=== PATIENT | male | born 1940 | race African-American/Black ===

== ENCOUNTER 2021-09-21 18:25 | Inpatient (IN) | payer MEDICARE, MEDICAID ==
[~2021-09-21] VITALS: Ht 182.9 cm; Wt 108.4 kg
[~2021-09-21 18:25] MED LIST: ACET500C PO; ATOR40TA52 PO; CALCTAB25 PO; CLOP75TA70 PO; DENO60SO SC; DILT180C10 PO; FURO20TA3 PO; ISOS10TA2 PO; LISI40TA11 PO; METF-370 PO; METO-289 PO; OMEP20CA74 OR; PIO30T GT; SAXA1TAB PO
[2021-09-21] MEDS ORDERED: ENOXAPARIN SOD 100 MG/1 ML SYRINGE SC ONE (20:00)
[2021-09-21] MEDS ORDERED: MORPHINE SULFATE 4 MG/ML SYR/VIAL IV ONE (20:00)
[2021-09-21] MEDS ORDERED: ONDANSETRON HCL 4 MG/2 ML VIAL IV ONE (20:00)
[2021-09-21] MEDS ORDERED: ONDANSETRON HCL 4 MG/2 ML VIAL IV PRN (21:30)
[2021-09-21] MEDS ORDERED: ACETAMINOPHEN 325 MG TAB PO PRN (21:30)
[2021-09-21] MEDS ORDERED: DEXTROSE (50%) 50ML SYRG IV PRN (21:30)
[2021-09-21 22:25] LABS: Basophils # (auto) 0 10 ^3/uL (0-0.2); Basophils % (auto) 0.4 % (0.0-2.0); Eosinophils # (auto) 0.1 10 ^3/uL (0-0.8); Eosinophils % (auto) 0.7 % (0.0-7.0); Hematocrit 39.1 % (41.0-53.0); Hemoglobin 12.4 g/dL (13.5-17.5); Lymphocytes # (auto) 1.3 10 ^3/uL (0.4-5.4); Lymphocytes % (auto) 15.7 % (10.0-50.0); Mean Corpuscular Hemoglobin 26.2 pg (28.0-32.0); Mean Corpuscular Hgb Conc. 31.6 g/dL (32.0-36.0); Mean Corpuscular Volume 82.8 fL (80.0-100.0); Monocytes % (auto) 12.1 % (0.0-12.0); Neutrophils % (auto) 71.1 % (37.0-80.0); Nucleated Red Blood Cells % 0.1 %; Red Blood Cells 4.72 10^6/uL (4.5-5.90); Red Cell Distribution Width 15.1 % (11.8-14.3); White Blood Cell 8.5 10^3/uL (4.4-10.8)
[2021-09-21 22:40] LABS: INR 1.03 (0.9-1.15); Partial Thromboplastin Time 27.3 sec (23.6-33.0)
[2021-09-21 22:56] LABS: Albumin 2.9 g/dL (3.4-5.0); Calcium 9.4 mg/dL (8.5-10.1); Potassium 4.7 mmol/L (3.5-5.1)
[2021-09-21 22:58] LABS: BUN/Creatinine Ratio 11.1
[2021-09-21 23:00] LABS: Bilirubin, Total 0.4 mg/dL (0.2-1.0); Total Protein 7.7 g/dL (6.4-8.2)
[2021-09-21] MEDS: InsuLIN REG 1unit/0.01ml Soln (100units/ml) SC SCH (23:23)
[2021-09-21] MEDS: ACCU-CHEK COMFORT CURVE STRIP VI SCH (23:24)
[2021-09-21] MEDS: ATORVASTATIN 20 MG TAB PO SCH (23:24)
[2021-09-22 06:13] LABS: Basophils # (auto) 0 10 ^3/uL (0-0.2); Basophils % (auto) 0.4 % (0.0-2.0); Eosinophils # (auto) 0.1 10 ^3/uL (0-0.8); Nucleated Red Blood Cells % 0.1 %
[2021-09-22 06:17] LABS: Eosinophils % (auto) 0.8 % (0.0-7.0); Hematocrit 36.7 % (41.0-53.0); Hemoglobin 11.8 g/dL (13.5-17.5); Lymphocytes # (auto) 1.4 10 ^3/uL (0.4-5.4); Lymphocytes % (auto) 21.3 % (10.0-50.0); Mean Corpuscular Hemoglobin 26.4 pg (28.0-32.0); Mean Corpuscular Hgb Conc. 32.3 g/dL (32.0-36.0); Mean Corpuscular Volume 81.9 fL (80.0-100.0); Monocytes # (auto) 0.7 10 ^3/uL (0-1.3); Monocytes % (auto) 11.5 % (0.0-12.0); Neutrophils # (auto) 4.2 10 ^3/uL (1.6-8.6); Red Blood Cells 4.48 10^6/uL (4.5-5.90); White Blood Cell 6.4 10^3/uL (4.4-10.8)
[2021-09-22 06:25] LABS: Albumin 2.8 g/dL (3.4-5.0); BUN/Creatinine Ratio 10.1; Calcium 9.3 mg/dL (8.5-10.1); Potassium 4.5 mmol/L (3.5-5.1)
[2021-09-22 06:37] LABS: Bilirubin, Total 0.4 mg/dL (0.2-1.0); Total Protein 7.6 g/dL (6.4-8.2)
[2021-09-22] MEDS: InsuLIN REG 1unit/0.01ml Soln (100units/ml) SC SCH ×4 (07:00→22:00)
[2021-09-22] MEDS: ACCU-CHEK COMFORT CURVE STRIP VI SCH ×3 (07:37→17:00)
[2021-09-22] MEDS: dilTIAZem HCL 180MG ER CAP PO SCH (10:23)
[2021-09-22] MEDS: ISOSORBIDE DINITRATE 10 MG TAB PO SCH (10:23)
[2021-09-22] MEDS: FUROSEMIDE 20 MG TAB PO SCH (10:23)
[2021-09-22] MEDS: ENOXAPARIN SOD 100 MG/1 ML SYRINGE SC SCH (10:24)
[2021-09-22] MEDS: METOPROLOL SUCCINATE XL 50 MG TAB PO SCH (10:24)
[2021-09-22] MEDS: CLOPIDOGREL BISULFATE 75 MG TAB PO SCH (10:24)
[2021-09-22] MEDS ORDERED: NITROGLYCERIN 0.4 MG SL TAB SL PRN (13:45)
[2021-09-22] MEDS ORDERED: SODIUM CHLORIDE 0.9% 1,000 ML IV ONE (13:45)
[2021-09-22] MEDS ORDERED: MORPHINE SULFATE INJECTION 2 MG/ML SYRG IV PRN (13:45)
[2021-09-22] MEDS ORDERED: IOHEXOL 350 MG/ML 100ML IJ ONE (14:02)
[2021-09-22] MEDS: SODIUM CHLOR 0.9% PF (SALINE LOCK) 10ML VIAL/SYR IV SCH (14:09)
[2021-09-23 05:40] LABS: Basophils # (auto) 0 10 ^3/uL (0-0.2); Basophils % (auto) 0.7 % (0.0-2.0); Eosinophils # (auto) 0 10 ^3/uL (0-0.8); Hemoglobin 11.4 g/dL (13.5-17.5); White Blood Cell 6.8 10^3/uL (4.4-10.8)
[2021-09-23 05:42] LABS: BUN/Creatinine Ratio 10.7; Calcium 8.8 mg/dL (8.5-10.1); Eosinophils % (auto) 0.7 % (0.0-7.0); Lymphocytes # (auto) 1.1 10 ^3/uL (0.4-5.4); Lymphocytes % (auto) 15.5 % (10.0-50.0); Mean Corpuscular Hgb Conc. 31.6 g/dL (32.0-36.0); Mean Corpuscular Volume 82.4 fL (80.0-100.0); Monocytes # (auto) 0.7 10 ^3/uL (0-1.3); Monocytes % (auto) 10.9 % (0.0-12.0); Neutrophils # (auto) 4.9 10 ^3/uL (1.6-8.6); Neutrophils % (auto) 72.2 % (37.0-80.0); Nucleated Red Blood Cells % 0.2 %; Red Blood Cells 4.37 10^6/uL (4.5-5.90); Red Cell Distribution Width 15.3 % (11.8-14.3)
[2021-09-23] MEDS: InsuLIN REG 1unit/0.01ml Soln (100units/ml) SC SCH ×2 (07:00→17:00)
[2021-09-23 09:00] VITALS: BP 147/55
[2021-09-23] MEDS: dilTIAZem HCL 180MG ER CAP PO SCH (09:05)
[2021-09-23] MEDS: ENOXAPARIN SOD 100 MG/1 ML SYRINGE SC SCH ×2 (09:05→23:36)
[2021-09-23] MEDS: ISOSORBIDE DINITRATE 10 MG TAB PO SCH (09:06)
[2021-09-23] MEDS: FUROSEMIDE 20 MG TAB PO SCH (09:08)
[2021-09-23] MEDS: METOPROLOL SUCCINATE XL 50 MG TAB PO SCH (09:09)
[2021-09-23] MEDS: CLOPIDOGREL BISULFATE 75 MG TAB PO SCH (09:09)
[2021-09-23] MEDS: ACCU-CHEK COMFORT CURVE STRIP VI SCH ×3 (11:30→23:38)
[2021-09-23 12:24] VITALS: BP 119/59
[2021-09-23] MEDS: SODIUM CHLOR 0.9% PF (SALINE LOCK) 10ML VIAL/SYR IV SCH ×2 (13:07→23:37)
[2021-09-23 16:59] VITALS: BP 118/86
[2021-09-23] MEDS ORDERED: LIDOCAINE 2% JELLY 11ml (GLYDO) UR ONE (17:30)
[2021-09-23 22:00] VITALS: BP 127/67
[2021-09-23] MEDS: ATORVASTATIN 20 MG TAB PO SCH (23:37)
[2021-09-23] MEDS: HYDROcodone-ACET 5/325MG TAB PO PRN (23:38)
[2021-09-24] MEDS: ATORVASTATIN 20 MG TAB PO SCH ×2 (02:00→21:49)
[2021-09-24 05:50] VITALS: BP 135/59
[2021-09-24] MEDS: InsuLIN REG 1unit/0.01ml Soln (100units/ml) SC SCH ×5 (07:00→21:49)
[2021-09-24 07:29] LABS: Basophils # (auto) 0 10 ^3/uL (0-0.2); Eosinophils # (auto) 0 10 ^3/uL (0-0.8); Nucleated Red Blood Cells % 0.1 %
[2021-09-24 07:33] LABS: Basophils % (auto) 0.7 % (0.0-2.0); Eosinophils % (auto) 0.5 % (0.0-7.0); Hematocrit 36.1 % (41.0-53.0); Hemoglobin 11.6 g/dL (13.5-17.5); Lymphocytes # (auto) 0.9 10 ^3/uL (0.4-5.4); Lymphocytes % (auto) 17.2 % (10.0-50.0); Mean Corpuscular Hemoglobin 26.4 pg (28.0-32.0); Mean Corpuscular Hgb Conc. 32.1 g/dL (32.0-36.0); Mean Corpuscular Volume 82.1 fL (80.0-100.0); Monocytes # (auto) 0.7 10 ^3/uL (0-1.3); Monocytes % (auto) 12.4 % (0.0-12.0); Neutrophils # (auto) 3.6 10 ^3/uL (1.6-8.6); Neutrophils % (auto) 69.2 % (37.0-80.0); Red Cell Distribution Width 15.1 % (11.8-14.3); White Blood Cell 5.3 10^3/uL (4.4-10.8)
[2021-09-24 07:53] LABS: Potassium 4.9 mmol/L (3.5-5.1)
[2021-09-24] MEDS: ACCU-CHEK COMFORT CURVE STRIP VI SCH ×4 (08:06→21:54)
[2021-09-24] MEDS: SODIUM CHLOR 0.9% PF (SALINE LOCK) 10ML VIAL/SYR IV SCH ×3 (08:06→21:49)
[2021-09-24 08:08] LABS: BUN/Creatinine Ratio 10.9; Calcium 9.2 mg/dL (8.5-10.1)
[2021-09-24 09:39] VITALS: BP 127/67
[2021-09-24] MEDS: dilTIAZem HCL 180MG ER CAP PO SCH (10:47)
[2021-09-24] MEDS: CLOPIDOGREL BISULFATE 75 MG TAB PO SCH (10:48)
[2021-09-24] MEDS: ISOSORBIDE DINITRATE 10 MG TAB PO SCH (10:48)
[2021-09-24] MEDS: FUROSEMIDE 20 MG TAB PO SCH (10:48)
[2021-09-24] MEDS: ENOXAPARIN SOD 100 MG/1 ML SYRINGE SC SCH (10:49)
[2021-09-24] MEDS: METOPROLOL SUCCINATE XL 50 MG TAB PO SCH (10:49)
[2021-09-24 12:53] VITALS: BP 124/53
[2021-09-24] MEDS ORDERED: HEPARIN SODIUM (PORCINE) 5000 UNITS/ML 1ML VIAL IV ONE (13:30)
[2021-09-24] MEDS: HYDROcodone-ACET 5/325MG TAB PO PRN (14:55)
[2021-09-24 15:37] LABS: Basophils # (auto) 0.1 10 ^3/uL (0-0.2); Basophils % (auto) 1.9 % (0.0-2.0); Eosinophils # (auto) 0 10 ^3/uL (0-0.8); Eosinophils % (auto) 0.5 % (0.0-7.0); Hematocrit 39.5 % (41.0-53.0); Hemoglobin 12.6 g/dL (13.5-17.5); Lymphocytes # (auto) 1.1 10 ^3/uL (0.4-5.4); Lymphocytes % (auto) 18.1 % (10.0-50.0); Mean Corpuscular Hemoglobin 26.2 pg (28.0-32.0); Mean Corpuscular Hgb Conc. 31.8 g/dL (32.0-36.0); Mean Corpuscular Volume 82.3 fL (80.0-100.0); Monocytes # (auto) 0.6 10 ^3/uL (0-1.3); Monocytes % (auto) 9.9 % (0.0-12.0); Neutrophils # (auto) 4.3 10 ^3/uL (1.6-8.6); Neutrophils % (auto) 69.6 % (37.0-80.0); Nucleated Red Blood Cells % 0.3 %; Red Cell Distribution Width 15.2 % (11.8-14.3); White Blood Cell 6.2 10^3/uL (4.4-10.8)
[2021-09-24 16:19] LABS: INR 1.09 (0.9-1.15); Partial Thromboplastin Time 32.7 sec (23.6-33.0)
[2021-09-24] MEDS: HEPARIN DRIP/D5W 100UNITS/ML 250 ML IV SCH (16:36)
[2021-09-24 16:38] VITALS: BP 138/57
[2021-09-24 21:26] VITALS: BP 144/67
[2021-09-24 23:44] LABS: INR 1.1 (0.9-1.15); Partial Thromboplastin Time 65.4 sec (23.6-33.0)
[2021-09-25] VITALS (13 sets, daily range): BP systolic 120–153; BP diastolic 50–81
[2021-09-25 05:24] LABS: Basophils # (auto) 0.1 10 ^3/uL (0-0.2); Eosinophils # (auto) 0 10 ^3/uL (0-0.8); Eosinophils % (auto) 0.4 % (0.0-7.0); Hemoglobin 12.2 g/dL (13.5-17.5); Lymphocytes # (auto) 1.3 10 ^3/uL (0.4-5.4); Monocytes # (auto) 0.6 10 ^3/uL (0-1.3)
[2021-09-25 05:27] LABS: Basophils % (auto) 0.9 % (0.0-2.0); Hematocrit 37.6 % (41.0-53.0); Lymphocytes % (auto) 22.2 % (10.0-50.0); Mean Corpuscular Hemoglobin 26.6 pg (28.0-32.0); Mean Corpuscular Hgb Conc. 32.5 g/dL (32.0-36.0); Mean Corpuscular Volume 81.9 fL (80.0-100.0); Monocytes % (auto) 9.9 % (0.0-12.0); Neutrophils % (auto) 66.6 % (37.0-80.0); Red Cell Distribution Width 15.1 % (11.8-14.3)
[2021-09-25 05:40] LABS: INR 1.08 (0.9-1.15); Partial Thromboplastin Time 69.2 sec (23.6-33.0)
[2021-09-25 05:41] LABS: Calcium 8.9 mg/dL (8.5-10.1); Potassium 4.3 mmol/L (3.5-5.1)
[2021-09-25 05:43] LABS: BUN/Creatinine Ratio 10.1
[2021-09-25] MEDS: HEPARIN DRIP/D5W 100UNITS/ML 250 ML IV SCH (06:47)
[2021-09-25] MEDS: SODIUM CHLOR 0.9% PF (SALINE LOCK) 10ML VIAL/SYR IV SCH ×2 (06:47→14:00)
[2021-09-25] MEDS: InsuLIN REG 1unit/0.01ml Soln (100units/ml) SC SCH ×4 (06:48→22:00)
[2021-09-25] MEDS: ACCU-CHEK COMFORT CURVE STRIP VI SCH ×3 (06:48→17:00)
[2021-09-25] MEDS: FUROSEMIDE 20 MG TAB PO SCH (09:32)
[2021-09-25] MEDS: ISOSORBIDE DINITRATE 10 MG TAB PO SCH (09:32)
[2021-09-25] MEDS: METOPROLOL SUCCINATE XL 50 MG TAB PO SCH (09:32)
[2021-09-25] MEDS: dilTIAZem HCL 180MG ER CAP PO SCH (09:33)
[2021-09-25] MEDS ORDERED: MIDAZOLAM HCL 2MG/2ML 2ml VIAL (1mg/ml) ONE (12:11)
[2021-09-25] MEDS ORDERED: HYDROmorphone HCL 2 MG/ML VL ONE (12:11)
[2021-09-25] MEDS ORDERED: LIDOCAINE 2%HCL (LOCAL ANESTH.) INJ 20ML MDV ONE (12:11)
[2021-09-25] MEDS ORDERED: IODIXANOL 320MG/ML 100ML BTL IV ONE (12:12)
[2021-09-25] MEDS ORDERED: fentaNYL CITRATE 100 MCG/2 ML VL ONE (12:34)
[2021-09-25] MEDS ORDERED: ANGIOMAX 250 MG VIAL IV ONE (12:59)
[2021-09-25] MEDS ORDERED: SODIUM CHL 0.9% 0 ML ONE (12:59)
[2021-09-25] MEDS ORDERED: HEPARIN SODIUM (PORCINE) 5000 UNITS/ML 1ML VIAL ONE (13:31)
[2021-09-25] MEDS ORDERED: ENOXAPARIN SOD 80 MG/0.8ML SYRINGE SC ONE (18:30)
[2021-09-26] MEDS: SODIUM CHLOR 0.9% PF (SALINE LOCK) 10ML VIAL/SYR IV SCH ×4 (00:29→21:26)
[2021-09-26] MEDS: ATORVASTATIN 20 MG TAB PO SCH ×2 (00:30→21:27)
[2021-09-26] MEDS: ACCU-CHEK COMFORT CURVE STRIP VI SCH ×4 (00:30→17:00)
[2021-09-26] MEDS: HYDROcodone-ACET 5/325MG TAB PO PRN (00:32)
[2021-09-26 05:46] LABS: Basophils # (auto) 0 10 ^3/uL (0-0.2); Basophils % (auto) 0.4 % (0.0-2.0); Eosinophils # (auto) 0 10 ^3/uL (0-0.8); Hemoglobin 11.7 g/dL (13.5-17.5); White Blood Cell 5.8 10^3/uL (4.4-10.8)
[2021-09-26 05:47] LABS: Eosinophils % (auto) 0.4 % (0.0-7.0); Hematocrit 36.9 % (41.0-53.0); Lymphocytes # (auto) 1.1 10 ^3/uL (0.4-5.4); Lymphocytes % (auto) 18.2 % (10.0-50.0); Mean Corpuscular Hemoglobin 25.9 pg (28.0-32.0); Mean Corpuscular Hgb Conc. 31.6 g/dL (32.0-36.0); Mean Corpuscular Volume 81.9 fL (80.0-100.0); Monocytes # (auto) 0.8 10 ^3/uL (0-1.3); Neutrophils # (auto) 3.9 10 ^3/uL (1.6-8.6); Nucleated Red Blood Cells % 0.3 %; Red Blood Cells 4.51 10^6/uL (4.5-5.90)
[2021-09-26 05:56] LABS: BUN/Creatinine Ratio 12.4; Calcium 8.8 mg/dL (8.5-10.1)
[2021-09-26] MEDS: InsuLIN REG 1unit/0.01ml Soln (100units/ml) SC SCH ×4 (06:58→22:00)
[2021-09-26 09:00] VITALS: BP 133/68
[2021-09-26] MEDS: APIXABAN 5 MG TAB PO SCH ×2 (10:06→21:26)
[2021-09-26] MEDS: dilTIAZem HCL 180MG ER CAP PO SCH (10:07)
[2021-09-26] MEDS: FUROSEMIDE 20 MG TAB PO SCH (10:08)
[2021-09-26] MEDS: ISOSORBIDE DINITRATE 10 MG TAB PO SCH (10:08)
[2021-09-26] MEDS: METOPROLOL SUCCINATE XL 50 MG TAB PO SCH (10:09)
[2021-09-26] MEDS ORDERED: APIX5TAB PO ×3 (11:12)
[2021-09-26 13:00] VITALS: BP 120/58
[2021-09-26 15:23] VITALS: BP 120/58
[2021-09-26 17:00] VITALS: BP 139/82
[2021-09-27 05:17] LABS: Eosinophils # (auto) 0 10 ^3/uL (0-0.8); Monocytes # (auto) 0.7 10 ^3/uL (0-1.3); White Blood Cell 5.6 10^3/uL (4.4-10.8)
[2021-09-27 05:19] LABS: Basophils # (auto) 0 10 ^3/uL (0-0.2); Basophils % (auto) 0.8 % (0.0-2.0); Eosinophils % (auto) 0.9 % (0.0-7.0); Hematocrit 37.7 % (41.0-53.0); Hemoglobin 11.9 g/dL (13.5-17.5); Lymphocytes # (auto) 1.4 10 ^3/uL (0.4-5.4); Lymphocytes % (auto) 24.2 % (10.0-50.0); Mean Corpuscular Hemoglobin 25.8 pg (28.0-32.0); Mean Corpuscular Hgb Conc. 31.6 g/dL (32.0-36.0); Mean Corpuscular Volume 81.6 fL (80.0-100.0); Monocytes % (auto) 12.2 % (0.0-12.0); Neutrophils # (auto) 3.5 10 ^3/uL (1.6-8.6); Neutrophils % (auto) 61.9 % (37.0-80.0); Nucleated Red Blood Cells % 0.1 %; Red Blood Cells 4.62 10^6/uL (4.5-5.90); Red Cell Distribution Width 15.3 % (11.8-14.3)
[2021-09-27 05:34] LABS: Calcium 8.6 mg/dL (8.5-10.1); Potassium 4.1 mmol/L (3.5-5.1)
[2021-09-27 05:38] LABS: BUN/Creatinine Ratio 13.5
[2021-09-27] MEDS: SODIUM CHLOR 0.9% PF (SALINE LOCK) 10ML VIAL/SYR IV SCH ×2 (06:00→14:00)
[2021-09-27] MEDS: ACCU-CHEK COMFORT CURVE STRIP VI SCH ×3 (06:16→11:30)
[2021-09-27] MEDS: InsuLIN REG 1unit/0.01ml Soln (100units/ml) SC SCH ×2 (07:00→11:30)
[2021-09-27] MEDS: ISOSORBIDE DINITRATE 10 MG TAB PO SCH (10:54)
[2021-09-27] MEDS: dilTIAZem HCL 180MG ER CAP PO SCH (10:55)
[2021-09-27] MEDS: METOPROLOL SUCCINATE XL 50 MG TAB PO SCH (10:56)
[2021-09-27] MEDS: FUROSEMIDE 20 MG TAB PO SCH (10:56)
[2021-09-27] MEDS: APIXABAN 5 MG TAB PO SCH (10:56)
[2021-09-27 17:11] VITALS: BP 119/72
== END 2021-09-27 18:45 | disposition home health service (06) | DRG 270 ==
LOC: EDBD 18:25 → ER 18:29 → OVERFLOW 21:25 → WEST WING 09-22 20:23
PROVIDERS: ADMIT Nurse Practitioner; ATTEND Internal Medicine
PROC: 05HB33Z Insertion of Infusion Device into Right Basilic Vein, Percutaneous Approach (ICD-10-PCS; 2021-09-22)
PROC: B54MZZA Ultrasonography of Right Upper Extremity Veins, Guidance (ICD-10-PCS; 2021-09-22)
PROC: 06CN3ZZ Extirpation of Matter from Left Femoral Vein, Percutaneous Approach (ICD-10-PCS; principal; 2021-09-25)
PROC: 06CY3ZZ Extirpation of Matter from Lower Vein, Percutaneous Approach (ICD-10-PCS; 2021-09-25)
PROC: B51CYZZ Fluoroscopy of Left Lower Extremity Veins using Other Contrast (ICD-10-PCS; 2021-09-25)
DX: I82.412 Acute embolism and thrombosis of left femoral vein (principal); I26.99 Other pulmonary embolism without acute cor pulmonale; N17.0 Acute kidney failure with tubular necrosis; J96.01 Acute respiratory failure with hypoxia; I42.9 Cardiomyopathy, unspecified; E44.0 Moderate protein-calorie malnutrition; I82.432 Acute embolism and thrombosis of left popliteal vein; I82.422 Acute embolism and thrombosis of left iliac vein; E78.5 Hyperlipidemia, unspecified; E11.65 Type 2 diabetes mellitus with hyperglycemia; E66.01 Morbid (severe) obesity due to excess calories; Z68.33 Body mass index [BMI] 33.0-33.9, adult; Z20.822 Contact with and (suspected) exposure to COVID-19; I50.9 Heart failure, unspecified; I25.10 Atherosclerotic heart disease of native coronary artery without angina pectoris; I11.0 Hypertensive heart disease with heart failure; F17.210 Nicotine dependence, cigarettes, uncomplicated; Z53.20 Procedure and treatment not carried out because of patient's decision for unspecified reasons; Z85.46 Personal history of malignant neoplasm of prostate; Z86.73 Personal history of transient ischemic attack (TIA), and cerebral infarction without residual deficits; Z98.61 Coronary angioplasty status
CPT/HCPCS: 36415; 36600; 71275; 76942; 80048; 80053; 82805; 82962; 85025; 85379; 85610; 85730; 86850; 86900; 86901; 87426; 93005; 93306; 93971; 96361; 96372; 96374; 96375; 99152; 99153; C1769; G0378; J1815; J2250; J2405; Q9967

== ENCOUNTER 2021-12-15 12:28 | Inpatient (IN) | payer MEDICARE, MEDICAID ==
[~2021-12-15] VITALS: Ht 170.2 cm; Wt 94.7 kg
[~2021-12-15 12:28] MED LIST changes: +APIX5TAB PO; -CLOP75TA70 PO; -METF-370 PO; -PIO30T GT; +PIO30T PO
[2021-12-15] MEDS ORDERED: PIPERACILLIN-TAZOB 3.375GM 100 ML IV ONE (12:45)
[2021-12-15 14:28] LABS: Basophils # (auto) 0 10 ^3/uL (0-0.2); Basophils % (auto) 0.6 % (0.0-2.0); Eosinophils # (auto) 0.1 10 ^3/uL (0-0.8); Eosinophils % (auto) 0.9 % (0.0-7.0); Hematocrit 36.9 % (41.0-53.0); Hemoglobin 11.7 g/dL (13.5-17.5); Lymphocytes # (auto) 1.4 10 ^3/uL (0.4-5.4); Mean Corpuscular Hemoglobin 25.5 pg (28.0-32.0); Mean Corpuscular Hgb Conc. 31.7 g/dL (32.0-36.0); Mean Corpuscular Volume 80.5 fL (80.0-100.0); Monocytes # (auto) 0.8 10 ^3/uL (0-1.3); Monocytes % (auto) 11.5 % (0.0-12.0); Neutrophils # (auto) 4.5 10 ^3/uL (1.6-8.6); Nucleated Red Blood Cells % 0.1 %; Red Blood Cells 4.59 10^6/uL (4.5-5.90); Red Cell Distribution Width 17.4 % (11.8-14.3); White Blood Cell 6.9 10^3/uL (4.4-10.8)
[2021-12-15 14:41] LABS: Albumin 3.1 g/dL (3.4-5.0); BUN/Creatinine Ratio 9.8; Calcium 9.3 mg/dL (8.5-10.1); Potassium 4.2 mmol/L (3.5-5.1)
[2021-12-15 14:45] LABS: Bilirubin, Total 0.5 mg/dL (0.2-1.0); Total Protein 7.6 g/dL (6.4-8.2)
[2021-12-15 15:09] LABS: INR 1.03 (0.9-1.15); Partial Thromboplastin Time 27.7 sec (23.6-33.0)
[2021-12-15] MEDS ORDERED: ENOXAPARIN SOD 100 MG/1 ML SYRINGE SC ONE (17:15)
[2021-12-15] MEDS ORDERED: MORPHINE SULFATE INJECTION 2 MG/ML SYRG IV PRN ×2 (17:15→19:15)
[2021-12-15] MEDS ORDERED: NITROGLYCERIN 0.4 MG SL TAB SL PRN (17:15)
[2021-12-15] MEDS ORDERED: IOHEXOL 350 MG/ML 100ML IJ ONE (17:29)
[2021-12-15] MEDS ORDERED: LACTATED RINGER'S 1,000 ML IV SCH (20:00)
[2021-12-15] MEDS ORDERED: LACTULOSE 20Gm/30ML SOLN PO PRN (20:45)
[2021-12-15] MEDS ORDERED: DOCUSATE SOD 100 MG CAP PO PRN (20:45)
[2021-12-15] MEDS ORDERED: hydrALAZINE HCL 20 MG/ML VL IV PRN (20:45)
[2021-12-15] MEDS ORDERED: IPRATROPIUM BROM 0.5 MG/2.5ML INH SOL NEB ONE (20:45)
[2021-12-15] MEDS ORDERED: ACETAMINOPHEN 325 MG TAB PO PRN (20:45)
[2021-12-15] MEDS ORDERED: DEXTROSE (50%) 50ML SYRG IV PRN (20:45)
[2021-12-15] MEDS ORDERED: METOCLOPRAMIDE HCL 5MG/ml INJ 2ml VIAL IV PRN (20:45)
[2021-12-15] MEDS ORDERED: BUDESONIDE (INHALATION) 0.5 MG/2 ML NEB NEB ONE (20:45)
[2021-12-15] MEDS ORDERED: HYDROcodone-ACET 5/325MG TAB PO ONE (20:45)
[2021-12-15] MEDS ORDERED: FAMOTIDINE (10MG/ML) 2ML VL IV ONE (20:45)
[2021-12-15] MEDS ORDERED: METOPROLOL SUCCINATE XL 50 MG TAB PO ONE (20:45)
[2021-12-15] MEDS ORDERED: POTASSIUM CHL 20 Meq TABLET PO PRN (20:45)
[2021-12-15] MEDS ORDERED: LORazepam 0.5 MG TAB PO PRN (20:45)
[2021-12-15] MEDS: APIXABAN 5 MG TAB PO SCH (21:57)
[2021-12-15] MEDS: FUROSEMIDE 20 MG/2 ML VIAL IV SCH (21:58)
[2021-12-15] MEDS: CLINDAMYCIN 600MG IV 50 ML IV SCH (21:58)
[2021-12-15] MEDS ORDERED: IPRATROPIUM BROM 0.5 MG/2.5ML INH SOL NEB SCH (22:00)
[2021-12-15] MEDS: cefTRIAXone 1GM/50ML D5W 50 ML IV SCH (22:00)
[2021-12-15] MEDS ORDERED: BUDESONIDE (INHALATION) 0.5 MG/2 ML NEB NEB SCH (22:00)
[2021-12-15] MEDS: ATORVASTATIN 20 MG TAB PO SCH (22:01)
[2021-12-15] MEDS: ACCU-CHEK COMFORT CURVE STRIP VI SCH (22:19)
[2021-12-15 22:28] LABS: Phosphorus 2.6 mg/dL (2.5-4.90)
[2021-12-15] MEDS: InsuLIN REG 1unit/0.01ml Soln (100units/ml) SC SCH (23:17)
[2021-12-15] MEDS: HYDROcodone-ACET 5/325MG TAB PO PRN (23:19)
[2021-12-16] VITALS (9 sets, daily range): BP systolic 109–132; BP diastolic 55–68
[2021-12-16] MEDS ORDERED: LISI-275 PO (02:58)
[2021-12-16] MEDS ORDERED: TAMS0.4C36 PO (03:00)
[2021-12-16] MEDS ORDERED: DILT120T3 PO (03:18)
[2021-12-16] MEDS ORDERED: CALC-386 PO (03:18)
[2021-12-16] MEDS ORDERED: FERR-20 PO (03:18)
[2021-12-16] MEDS ORDERED: GABA300C10 PO (03:18)
[2021-12-16] MEDS ORDERED: NITR0.4S29 SL (03:18)
[2021-12-16] MEDS ORDERED: METH500T22 PO (03:18)
[2021-12-16] MEDS ORDERED: MAGN400T40 PO (03:18)
[2021-12-16] MEDS ORDERED: ISOS10TA45 PO (03:18)
[2021-12-16] MEDS ORDERED: ALOG1TAB2 PO (03:18)
[2021-12-16] MEDS ORDERED: ALBU108A5 IN (03:18)
[2021-12-16 05:35] LABS: Basophils # (auto) 0 10 ^3/uL (0-0.2); Basophils % (auto) 0.6 % (0.0-2.0); Eosinophils # (auto) 0.1 10 ^3/uL (0-0.8); Hematocrit 34.9 % (41.0-53.0); Hemoglobin 11.2 g/dL (13.5-17.5); Lymphocytes # (auto) 1.5 10 ^3/uL (0.4-5.4); Neutrophils # (auto) 3.9 10 ^3/uL (1.6-8.6); Nucleated Red Blood Cells % 0.2 %
[2021-12-16 05:37] LABS: Eosinophils % (auto) 2.3 % (0.0-7.0); Lymphocytes % (auto) 23.2 % (10.0-50.0); Mean Corpuscular Hemoglobin 26.2 pg (28.0-32.0); Mean Corpuscular Hgb Conc. 32.2 g/dL (32.0-36.0); Mean Corpuscular Volume 81.2 fL (80.0-100.0); Monocytes # (auto) 0.7 10 ^3/uL (0-1.3); Monocytes % (auto) 11.9 % (0.0-12.0); Red Cell Distribution Width 17.2 % (11.8-14.3); White Blood Cell 6.3 10^3/uL (4.4-10.8)
[2021-12-16 05:50] LABS: INR 1.09 (0.9-1.15); Partial Thromboplastin Time 31.4 sec (23.6-33.0)
[2021-12-16 05:56] LABS: Calcium 9.2 mg/dL (8.5-10.1); Potassium 4.8 mmol/L (3.5-5.1)
[2021-12-16] MEDS: InsuLIN REG 1unit/0.01ml Soln (100units/ml) SC SCH ×4 (06:06→20:52)
[2021-12-16] MEDS: ACCU-CHEK COMFORT CURVE STRIP VI SCH ×4 (06:07→20:53)
[2021-12-16 06:09] LABS: BUN/Creatinine Ratio 9.2; Bilirubin, Total 0.7 mg/dL (0.2-1.0); CRP High Sensitivity 1.08 mg/dL (< 0.3); Phosphorus 2.9 mg/dL (2.5-4.90); Total Protein 7.6 g/dL (6.4-8.2)
[2021-12-16 06:14] LABS: Thyroid Stimulating Hormone 2.8 uIU/mL (0.358-3.74)
[2021-12-16] MEDS: FUROSEMIDE 20 MG/2 ML VIAL IV SCH (06:22)
[2021-12-16] MEDS: CLINDAMYCIN 600MG IV 50 ML IV SCH ×3 (06:22→21:00)
[2021-12-16 07:24] LABS: Alcohol, Urine < 3.0 mg/dL (0-10); Amphetamine Screen, Urine NEGATIVE (NEGATIVE); Barbiturate Scree,Urine NEGATIVE (NEGATIVE); Benzodiazephine Screen, Urine NEGATIVE (NEGATIVE); Cannabinoid Screen, Urine NEGATIVE (NEGATIVE); Cocaine Screen, Urine NEGATIVE (NEGATIVE); Opiate Scree,Urine NEGATIVE (NEGATIVE); Phencyclidine Screen, Urine NEGATIVE (NEGATIVE); Protein, Urine 30.9 mg/dL (0.0-11.9)
[2021-12-16 07:30] LABS: Urine Bacteria FEW /hpf (None Seen); Urine Blood Negative /uL (Negative); Urine Specific Gravity 1.033 (1.001-1.035); Urine WBC 1 /hpf (0 - 3)
[2021-12-16] MEDS: CALCIUM W/VIT D (600MG/400IU) TAB PO SCH ×2 (08:29→17:13)
[2021-12-16] MEDS: APIXABAN 5 MG TAB PO SCH ×2 (09:41→21:00)
[2021-12-16] MEDS: BENAZEPRIL HCL 10 MG TAB PO SCH (09:42)
[2021-12-16] MEDS: ASPirin 81 mg TAB PO SCH (09:43)
[2021-12-16] MEDS ORDERED: FAMOTIDINE (10MG/ML) 2ML VL IV SCH (10:00)
[2021-12-16] MEDS ORDERED: FUROSEMIDE 20 MG/2 ML VIAL IV ONE (13:15)
[2021-12-16] MEDS: FUROSEMIDE 40 MG/4 ML VIAL IV SCH (17:13)
[2021-12-16] MEDS: ATORVASTATIN 20 MG TAB PO SCH (21:00)
[2021-12-16] MEDS: HYDROcodone-ACET 5/325MG TAB PO PRN (21:00)
[2021-12-16] MEDS: METOPROLOL SUCCINATE XL 50 MG TAB PO SCH (21:01)
[2021-12-16] MEDS: cefTRIAXone 1GM/50ML D5W 50 ML IV SCH (21:09)
[2021-12-16] MEDS ORDERED: FAMOTIDINE 20 MG TAB PO SCH (22:00)
[2021-12-16] MEDS: MORPHINE SULFATE INJECTION 2 MG/ML SYRG IV PRN (22:28)
[2021-12-17 04:53] VITALS: BP 129/53
[2021-12-17] MEDS: CLINDAMYCIN 600MG IV 50 ML IV SCH ×3 (05:19→23:05)
[2021-12-17] MEDS: MORPHINE SULFATE INJECTION 2 MG/ML SYRG IV PRN ×3 (05:21→20:45)
[2021-12-17] MEDS: InsuLIN REG 1unit/0.01ml Soln (100units/ml) SC SCH ×4 (06:39→21:47)
[2021-12-17] MEDS: ACCU-CHEK COMFORT CURVE STRIP VI SCH ×4 (06:39→21:47)
[2021-12-17] MEDS: FUROSEMIDE 40 MG/4 ML VIAL IV SCH ×2 (06:45→17:15)
[2021-12-17] MEDS: CALCIUM W/VIT D (600MG/400IU) TAB PO SCH ×2 (07:56→17:15)
[2021-12-17 08:00] VITALS: BP 120/57
[2021-12-17 09:00] VITALS: BP 120/57
[2021-12-17] MEDS: APIXABAN 5 MG TAB PO SCH ×2 (09:01→22:31)
[2021-12-17] MEDS: ASPirin 81 mg TAB PO SCH (09:02)
[2021-12-17] MEDS: BENAZEPRIL HCL 10 MG TAB PO SCH (09:02)
[2021-12-17 12:59] VITALS: BP 109/55
[2021-12-17 17:00] VITALS: BP 124/59
[2021-12-17 22:00] VITALS: BP 108/62
[2021-12-17] MEDS: METOPROLOL SUCCINATE XL 50 MG TAB PO SCH (22:31)
[2021-12-17] MEDS: ATORVASTATIN 20 MG TAB PO SCH (22:31)
[2021-12-17] MEDS: cefTRIAXone 1GM/50ML D5W 50 ML IV SCH (22:31)
[2021-12-18 05:00] VITALS: BP 95/51
[2021-12-18] MEDS: FUROSEMIDE 40 MG/4 ML VIAL IV SCH (05:09)
[2021-12-18] MEDS: CLINDAMYCIN 600MG IV 50 ML IV SCH (05:09)
[2021-12-18] MEDS: ACCU-CHEK COMFORT CURVE STRIP VI SCH ×2 (06:10→12:13)
[2021-12-18] MEDS: InsuLIN REG 1unit/0.01ml Soln (100units/ml) SC SCH ×2 (06:10→11:30)
[2021-12-18 08:00] VITALS: BP_SYST 0; BP_SYST 127; BP_SYST 95; BP_DIAS 0; BP_DIAS 51; BP_DIAS 52
[2021-12-18] MEDS: CALCIUM W/VIT D (600MG/400IU) TAB PO SCH (08:38)
[2021-12-18 08:53] VITALS: BP 127/52
[2021-12-18] MEDS: MORPHINE SULFATE INJECTION 2 MG/ML SYRG IV PRN (09:21)
[2021-12-18] MEDS: APIXABAN 5 MG TAB PO SCH (09:24)
[2021-12-18] MEDS: ASPirin 81 mg TAB PO SCH (09:24)
[2021-12-18] MEDS: BENAZEPRIL HCL 10 MG TAB PO SCH (09:25)
[2021-12-18] MEDS ORDERED: CEPH-322 PO (10:01)
[2021-12-18] MEDS ORDERED: HYDR-4902 PO (10:01)
[2021-12-18] MEDS ORDERED: CLIN300C8 PO (10:01)
[2021-12-18] MEDS ORDERED: CYCLOBENZAPRINE HCL 10 MG TAB PO SCH ×2 (10:19→14:00)
[2021-12-18] MEDS ORDERED: CYCLOBENZAPRINE HCL 10 MG TAB PO ONE (10:30)
[2021-12-18 10:53] VITALS: BP 127/52
[2021-12-19] MEDS ORDERED: CLIN300C8 PO (11:23)
[2021-12-19] MEDS ORDERED: HYDR-4902 PO (11:23)
[2021-12-19] MEDS ORDERED: CEPH500C PO (11:23)
== END 2021-12-18 13:00 | disposition home health service (06) | DRG 602 ==
LOC: ER 12:28 → EDBD 12:28 → TELE 17:07 → TELE-EAST 23:46
PROVIDERS: ADMIT Hospitalist; ATTEND Family Medicine
DX: L03.116 Cellulitis of left lower limb (principal); I50.43 Acute on chronic combined systolic (congestive) and diastolic (congestive) heart failure; I42.9 Cardiomyopathy, unspecified; I13.0 Hypertensive heart and chronic kidney disease with heart failure and stage 1 through stage 4 chronic kidney disease, or unspecified chronic kidney disease; I82.432 Acute embolism and thrombosis of left popliteal vein; E11.22 Type 2 diabetes mellitus with diabetic chronic kidney disease; E11.40 Type 2 diabetes mellitus with diabetic neuropathy, unspecified; E11.51 Type 2 diabetes mellitus with diabetic peripheral angiopathy without gangrene; E88.09 Other disorders of plasma-protein metabolism, not elsewhere classified; Z66 Do not resuscitate; I25.10 Atherosclerotic heart disease of native coronary artery without angina pectoris; J44.9 Chronic obstructive pulmonary disease, unspecified; N18.31 Chronic kidney disease, stage 3a; E78.00 Pure hypercholesterolemia, unspecified; D64.9 Anemia, unspecified; Z20.822 Contact with and (suspected) exposure to COVID-19; E66.01 Morbid (severe) obesity due to excess calories; F17.210 Nicotine dependence, cigarettes, uncomplicated; Z79.01 Long term (current) use of anticoagulants; Z79.899 Other long term (current) drug therapy; Z85.46 Personal history of malignant neoplasm of prostate; Z86.711 Personal history of pulmonary embolism; Z86.718 Personal history of other venous thrombosis and embolism; Z86.73 Personal history of transient ischemic attack (TIA), and cerebral infarction without residual deficits; Z95.5 Presence of coronary angioplasty implant and graft; Z68.32 Body mass index [BMI] 32.0-32.9, adult; Z71.6 Tobacco abuse counseling
CPT/HCPCS: 36415; 71045; 71275; 80053; 80061; 80307; 81001; 82550; 82728; 82962; 83036; 83605; 83615; 83690; 83735; 83880; 83970; 84100; 84156; 84443; 84484; 84550; 85025; 85610; 85652; 85730; 86141; 87040; 87086; 93005; 93970; 96365; G0378; J0696; J1815; J2543; J3490

== ENCOUNTER 2022-01-03 12:52 | Inpatient (IN) | payer MEDICARE, MEDICAID ==
[~2022-01-03] VITALS: Ht 170.2 cm; Wt 71.2 kg
[~2022-01-03 12:52] MED LIST changes: +ALBU108A5 IN; +ALOG1TAB2 PO; +CALC-386 PO; -CALCTAB25 PO; +CEPH500C PO; +CLIN300C8 PO; -DENO60SO SC; +DILT120T3 PO; -DILT180C10 PO; +FERR-20 PO; +GABA300C10 PO; +HYDR-4902 PO; -ISOS10TA2 PO; +ISOS10TA45 PO; +LISI-275 PO; -LISI40TA11 PO; +MAGN400T40 PO; +METH500T22 PO; +NITR0.4S29 SL; -SAXA1TAB PO; +TAMS0.4C36 PO
[2022-01-03 13:55] LABS: Basophils # (auto) 0.1 10 ^3/uL (0-0.2); Eosinophils # (auto) 0 10 ^3/uL (0-0.8); Hemoglobin 11.4 g/dL (13.5-17.5); Monocytes # (auto) 0.6 10 ^3/uL (0-1.3); Monocytes % (auto) 9.7 % (0.0-12.0); Neutrophils # (auto) 4.3 10 ^3/uL (1.6-8.6)
[2022-01-03 13:56] LABS: Eosinophils % (auto) 0.1 % (0.0-7.0); Hematocrit 34.7 % (41.0-53.0); Lymphocytes # (auto) 0.9 10 ^3/uL (0.4-5.4); Lymphocytes % (auto) 16.1 % (10.0-50.0); Mean Corpuscular Hemoglobin 25.8 pg (28.0-32.0); Mean Corpuscular Hgb Conc. 32.8 g/dL (32.0-36.0); Mean Corpuscular Volume 78.8 fL (80.0-100.0); Neutrophils % (auto) 73.1 % (37.0-80.0); Nucleated Red Blood Cells % 0.1 %; Red Cell Distribution Width 17.1 % (11.8-14.3); White Blood Cell 5.8 10^3/uL (4.4-10.8)
[2022-01-03 14:11] LABS: INR 1.12 (0.9-1.15); Partial Thromboplastin Time 29.1 sec (23.6-33.0)
[2022-01-03 14:12] LABS: Albumin 2.9 g/dL (3.4-5.0); Calcium 9.5 mg/dL (8.5-10.1); Potassium 3.9 mmol/L (3.5-5.1)
[2022-01-03 14:13] LABS: BUN/Creatinine Ratio 7.6
[2022-01-03 14:15] LABS: Bilirubin, Total 0.5 mg/dL (0.2-1.0); Total Protein 7.8 g/dL (6.4-8.2)
[2022-01-03] MEDS ORDERED: ONDANSETRON HCL 4 MG/2 ML VIAL IV ONE (14:45)
[2022-01-03] MEDS ORDERED: MORPHINE SULFATE 4 MG/ML SYR/VIAL IV ONE (14:45)
[2022-01-03] MEDS ORDERED: FUROSEMIDE 40 MG/4 ML VIAL IV ONE (15:00)
[2022-01-03] MEDS ORDERED: IOHEXOL 350 MG/ML 100ML IJ ONE (15:28)
[2022-01-03] MEDS ORDERED: cefTRIAXone 1GM/50ML D5W 50 ML IV ONE (18:15)
[2022-01-03] MEDS ORDERED: DEXTROSE (50%) 50ML SYRG IV PRN (18:15)
[2022-01-03] MEDS ORDERED: hydrALAZINE HCL 20 MG/ML VL IV PRN (18:30)
[2022-01-03] MEDS ORDERED: NICOTINE 14 MG/24HR TOPICAL PATCH TD ONE (18:30)
[2022-01-03 20:01] LABS: Cholesterol 157 mg/dL (< 200)
[2022-01-03 20:05] LABS: HDL Cholesterol 39 mg/dL (40-59); LDL Cholesterol 94 mg/dL (< 100); Triglycerides 111 mg/dL (< 150)
[2022-01-03] MEDS: ATORVASTATIN 20 MG TAB PO SCH (22:00)
[2022-01-03] MEDS: GABAPENTIN 300 MG CAP PO SCH (22:00)
[2022-01-03] MEDS: CLINDAMYCIN 300MG IV 50 ML IV SCH (22:00)
[2022-01-03] MEDS: APIXABAN 5 MG TAB PO SCH (22:00)
[2022-01-03] MEDS ORDERED: APIXABAN 5 MG TAB PO SCH (22:00)
[2022-01-03] MEDS: ACCU-CHEK COMFORT CURVE STRIP VI SCH (22:00)
[2022-01-03] MEDS: InsuLIN REG 1unit/0.01ml Soln (100units/ml) SC SCH (23:30)
[2022-01-04] VITALS (7 sets, daily range): BP systolic 103–143; BP diastolic 59–73
[2022-01-04] MEDS: MORPHINE SULFATE INJECTION 2 MG/ML SYRG IV PRN ×6 (00:44→22:51)
[2022-01-04] MEDS ORDERED: METF-370 PO (01:16)
[2022-01-04] MEDS: InsuLIN REG 1unit/0.01ml Soln (100units/ml) SC SCH ×4 (05:45→21:50)
[2022-01-04] MEDS: ACCU-CHEK COMFORT CURVE STRIP VI SCH ×4 (05:46→21:50)
[2022-01-04] MEDS: CLINDAMYCIN 300MG IV 50 ML IV SCH ×3 (06:20→21:50)
[2022-01-04] MEDS: FUROSEMIDE 20 MG/2 ML VIAL IV SCH ×2 (06:21→18:38)
[2022-01-04] MEDS: GABAPENTIN 300 MG CAP PO SCH ×3 (06:21→21:50)
[2022-01-04 07:34] LABS: BUN/Creatinine Ratio 9.3; Bilirubin, Total 0.5 mg/dL (0.2-1.0); Calcium 9.8 mg/dL (8.5-10.1); Total Protein 8.6 g/dL (6.4-8.2)
[2022-01-04 07:54] LABS: Eosinophils # (auto) 0 10 ^3/uL (0-0.8); Hematocrit 36.8 % (41.0-53.0); Mean Corpuscular Hgb Conc. 32.7 g/dL (32.0-36.0); Monocytes # (auto) 0.7 10 ^3/uL (0-1.3); Neutrophils # (auto) 4.1 10 ^3/uL (1.6-8.6)
[2022-01-04 07:57] LABS: Basophils # (auto) 0.1 10 ^3/uL (0-0.2); Basophils % (auto) 0.8 % (0.0-2.0); Eosinophils % (auto) 0.4 % (0.0-7.0); Lymphocytes # (auto) 1.6 10 ^3/uL (0.4-5.4); Lymphocytes % (auto) 24.2 % (10.0-50.0); Mean Corpuscular Hemoglobin 26.2 pg (28.0-32.0); Mean Corpuscular Volume 80.1 fL (80.0-100.0); Monocytes % (auto) 10.9 % (0.0-12.0); Neutrophils % (auto) 63.7 % (37.0-80.0); Nucleated Red Blood Cells % 0.1 %; Red Blood Cells 4.59 10^6/uL (4.5-5.90); Red Cell Distribution Width 17.6 % (11.8-14.3); White Blood Cell 6.4 10^3/uL (4.4-10.8)
[2022-01-04] MEDS: NICOTINE 14 MG/24HR TOPICAL PATCH TD SCH ×2 (09:15→09:23)
[2022-01-04] MEDS: FERROUS SULFATE 325mg EC TAB PO SCH (09:15)
[2022-01-04] MEDS: cefTRIAXone 1GM/50ML D5W 50 ML IV SCH (09:15)
[2022-01-04] MEDS: PANTOPRAZOLE 40 MG/10 ML VIAL INJ IV SCH (09:15)
[2022-01-04] MEDS: APIXABAN 5 MG TAB PO SCH (09:16)
[2022-01-04] MEDS: ATORVASTATIN 20 MG TAB PO SCH (21:50)
[2022-01-04] MEDS: ENOXAPARIN SOD 100 MG/1 ML SYRINGE SC SCH (21:50)
[2022-01-05 05:00] VITALS: BP 138/62
[2022-01-05] MEDS: CLINDAMYCIN 300MG IV 50 ML IV SCH ×3 (05:47→22:25)
[2022-01-05] MEDS: FUROSEMIDE 20 MG/2 ML VIAL IV SCH ×2 (05:48→17:10)
[2022-01-05] MEDS: GABAPENTIN 300 MG CAP PO SCH ×3 (05:48→22:26)
[2022-01-05 06:35] LABS: INR 1.13 (0.9-1.15)
[2022-01-05 06:39] LABS: Alanine Aminotransferase 19 U/L (16-61); Albumin 2.9 g/dL (3.4-5.0); Anion Gap 10 (5-15); Aspartate Aminotransferase 19 U/L (15-37); BUN/Creatinine Ratio 11.3; Blood Urea Nitrogen 13 mg/dL (7-18); Calcium 9.3 mg/dL (8.5-10.1); Carbon Dioxide 26 mmol/L (21-32); Chloride 102 mmol/L (98-107); GFR African American 78 mL/min; GFR Non-African American 65 mL/min; Glucose 120 mg/dL (74-106); Potassium 4.3 mmol/L (3.5-5.1); Sodium 138 mmol/L (136-145)
[2022-01-05] MEDS: InsuLIN REG 1unit/0.01ml Soln (100units/ml) SC SCH ×4 (06:39→22:00)
[2022-01-05] MEDS: ACCU-CHEK COMFORT CURVE STRIP VI SCH ×4 (06:39→22:26)
[2022-01-05] MEDS: MORPHINE SULFATE INJECTION 2 MG/ML SYRG IV PRN ×3 (06:40→22:27)
[2022-01-05 06:41] LABS: Alkaline Phosphatase 75 U/L (45-117); Bilirubin, Total 0.6 mg/dL (0.2-1.0)
[2022-01-05 07:55] LABS: Basophils # (auto) 0 10 ^3/uL (0-0.2); Basophils % (auto) 0.9 % (0.0-2.0); Eosinophils # (auto) 0.1 10 ^3/uL (0-0.8); Eosinophils % (auto) 1.1 % (0.0-7.0); Hematocrit 37.7 % (41.0-53.0); Hemoglobin 12.2 g/dL (13.5-17.5); Lymphocytes # (auto) 1.5 10 ^3/uL (0.4-5.4); Lymphocytes % (auto) 27.2 % (10.0-50.0); Mean Corpuscular Hemoglobin 25.9 pg (28.0-32.0); Mean Corpuscular Hgb Conc. 32.3 g/dL (32.0-36.0); Mean Corpuscular Volume 80.1 fL (80.0-100.0); Monocytes # (auto) 0.7 10 ^3/uL (0-1.3); Monocytes % (auto) 12.8 % (0.0-12.0); Neutrophils # (auto) 3.1 10 ^3/uL (1.6-8.6); Nucleated Red Blood Cells % 0.3 %; Red Blood Cells 4.71 10^6/uL (4.5-5.90); Red Cell Distribution Width 17.2 % (11.8-14.3); White Blood Cell 5.4 10^3/uL (4.4-10.8)
[2022-01-05 09:00] VITALS: BP 113/73
[2022-01-05] MEDS: cefTRIAXone 1GM/50ML D5W 50 ML IV SCH (09:29)
[2022-01-05] MEDS: PANTOPRAZOLE 40 MG/10 ML VIAL INJ IV SCH (09:30)
[2022-01-05] MEDS: FERROUS SULFATE 325mg EC TAB PO SCH (09:30)
[2022-01-05] MEDS: ENOXAPARIN SOD 100 MG/1 ML SYRINGE SC SCH ×2 (09:30→22:26)
[2022-01-05] MEDS: NICOTINE 14 MG/24HR TOPICAL PATCH TD SCH (09:31)
[2022-01-05] MEDS: HYDROcodone-ACET 5/325MG TAB PO PRN ×2 (09:41→17:18)
[2022-01-05 12:15] VITALS: BP 119/69
[2022-01-05] MEDS ORDERED: CLOPIDOGREL BISULFATE 75 MG TAB PO ONE (12:45)
[2022-01-05] MEDS ORDERED: LISINOPRIL 5 MG TAB PO ONE (12:45)
[2022-01-05] MEDS ORDERED: CARVEDILOL 3.125 MG TAB PO ONE (12:45)
[2022-01-05 17:00] VITALS: BP 114/61
[2022-01-05 22:00] VITALS: BP 109/59
[2022-01-05] MEDS: CARVEDILOL 3.125 MG TAB PO SCH (22:25)
[2022-01-05] MEDS: ATORVASTATIN 20 MG TAB PO SCH (22:26)
[2022-01-06 05:01] VITALS: BP 120/63
[2022-01-06] MEDS: MORPHINE SULFATE INJECTION 2 MG/ML SYRG IV PRN ×2 (05:14→21:38)
[2022-01-06] MEDS: FUROSEMIDE 20 MG/2 ML VIAL IV SCH ×2 (05:47→17:16)
[2022-01-06] MEDS: CLINDAMYCIN 300MG IV 50 ML IV SCH ×3 (05:47→21:21)
[2022-01-06] MEDS: GABAPENTIN 300 MG CAP PO SCH ×3 (05:47→21:21)
[2022-01-06] MEDS: InsuLIN REG 1unit/0.01ml Soln (100units/ml) SC SCH ×4 (06:30→21:40)
[2022-01-06] MEDS: ACCU-CHEK COMFORT CURVE STRIP VI SCH ×4 (06:30→21:41)
[2022-01-06 08:22] VITALS: BP 92/55
[2022-01-06] MEDS: CLOPIDOGREL BISULFATE 75 MG TAB PO SCH (09:06)
[2022-01-06] MEDS: FERROUS SULFATE 325mg EC TAB PO SCH (09:06)
[2022-01-06] MEDS: cefTRIAXone 1GM/50ML D5W 50 ML IV SCH (09:06)
[2022-01-06] MEDS: CARVEDILOL 3.125 MG TAB PO SCH ×2 (09:07→21:29)
[2022-01-06] MEDS: LISINOPRIL 5 MG TAB PO SCH (09:07)
[2022-01-06] MEDS: ENOXAPARIN SOD 100 MG/1 ML SYRINGE SC SCH ×2 (09:08→21:41)
[2022-01-06] MEDS: NICOTINE 14 MG/24HR TOPICAL PATCH TD SCH (09:08)
[2022-01-06] MEDS: HYDROcodone-ACET 5/325MG TAB PO PRN ×2 (10:52→17:49)
[2022-01-06 13:18] VITALS: BP 108/66
[2022-01-06 16:45] VITALS: BP 108/74
[2022-01-06] MEDS: ATORVASTATIN 20 MG TAB PO SCH (21:21)
[2022-01-06 22:22] VITALS: BP 104/83
[2022-01-07 05:14] VITALS: BP 140/68
[2022-01-07] MEDS: CLINDAMYCIN 300MG IV 50 ML IV SCH ×3 (05:15→21:32)
[2022-01-07] MEDS: GABAPENTIN 300 MG CAP PO SCH ×3 (05:15→21:33)
[2022-01-07] MEDS: FUROSEMIDE 20 MG/2 ML VIAL IV SCH ×2 (05:16→17:41)
[2022-01-07] MEDS: InsuLIN REG 1unit/0.01ml Soln (100units/ml) SC SCH ×4 (06:26→21:34)
[2022-01-07] MEDS: ACCU-CHEK COMFORT CURVE STRIP VI SCH ×4 (06:26→21:34)
[2022-01-07 06:58] LABS: Basophils # (auto) 0 10 ^3/uL (0-0.2); Eosinophils # (auto) 0.1 10 ^3/uL (0-0.8); Mean Corpuscular Hemoglobin 26.7 pg (28.0-32.0); Neutrophils # (auto) 3.5 10 ^3/uL (1.6-8.6); Red Blood Cells 4.51 10^6/uL (4.5-5.90); White Blood Cell 5.3 10^3/uL (4.4-10.8)
[2022-01-07 07:00] LABS: Basophils % (auto) 0.5 % (0.0-2.0); Hematocrit 36.2 % (41.0-53.0); Lymphocytes # (auto) 1.1 10 ^3/uL (0.4-5.4); Lymphocytes % (auto) 21.5 % (10.0-50.0); Mean Corpuscular Hgb Conc. 33.2 g/dL (32.0-36.0); Mean Corpuscular Volume 80.3 fL (80.0-100.0); Monocytes # (auto) 0.6 10 ^3/uL (0-1.3); Monocytes % (auto) 10.8 % (0.0-12.0); Neutrophils % (auto) 66.2 % (37.0-80.0); Nucleated Red Blood Cells % 0.1 %; Red Cell Distribution Width 16.7 % (11.8-14.3)
[2022-01-07 07:11] LABS: BUN/Creatinine Ratio 12.4; Calcium 9.8 mg/dL (8.5-10.1); Potassium 4.7 mmol/L (3.5-5.1)
[2022-01-07 07:12] LABS: INR 1.11 (0.9-1.15); Partial Thromboplastin Time 32.1 sec (23.6-33.0)
[2022-01-07] MEDS: cefTRIAXone 1GM/50ML D5W 50 ML IV SCH (08:32)
[2022-01-07] MEDS: FERROUS SULFATE 325mg EC TAB PO SCH (09:30)
[2022-01-07] MEDS: CLOPIDOGREL BISULFATE 75 MG TAB PO SCH (09:31)
[2022-01-07] MEDS: CARVEDILOL 3.125 MG TAB PO SCH ×2 (09:31→21:33)
[2022-01-07] MEDS: LISINOPRIL 5 MG TAB PO SCH (09:31)
[2022-01-07] MEDS: ENOXAPARIN SOD 100 MG/1 ML SYRINGE SC SCH ×3 (09:32→21:34)
[2022-01-07] MEDS: NICOTINE 14 MG/24HR TOPICAL PATCH TD SCH (09:33)
[2022-01-07 09:37] VITALS: BP 107/75
[2022-01-07] MEDS: MORPHINE SULFATE INJECTION 2 MG/ML SYRG IV PRN (10:53)
[2022-01-07] MEDS ORDERED: IODIXANOL 320MG/ML 100ML BTL IV ONE (12:02)
[2022-01-07] MEDS ORDERED: LIDOCAINE 2%HCL (LOCAL ANESTH.) INJ 10ml MDV ONE (12:02)
[2022-01-07] MEDS ORDERED: HYDROmorphone HCL 2 MG/ML VL/or syr ONE (12:09)
[2022-01-07] MEDS ORDERED: diphenhdrAMINE HCL 50 MG/1 ML VL ONE (12:09)
[2022-01-07] MEDS ORDERED: ANGIOMAX 250 MG VIAL IV ONE (12:09)
[2022-01-07] MEDS ORDERED: MIDAZOLAM HCL 2MG/2ML 2ml VIAL (1mg/ml) ONE (12:09)
[2022-01-07] MEDS ORDERED: SODIUM CHL 0.9% 50 ML ONE (12:10)
[2022-01-07 16:32] VITALS: BP 132/60
[2022-01-07] MEDS: ATORVASTATIN 20 MG TAB PO SCH (21:33)
[2022-01-07] MEDS: HYDROcodone-ACET 5/325MG TAB PO PRN (21:37)
[2022-01-07 22:07] VITALS: BP 102/58
[2022-01-08] MEDS: MORPHINE SULFATE INJECTION 2 MG/ML SYRG IV PRN ×3 (01:17→18:31)
[2022-01-08 04:49] VITALS: BP 129/69
[2022-01-08] MEDS: CLINDAMYCIN 300MG IV 50 ML IV SCH ×3 (06:41→21:33)
[2022-01-08] MEDS: GABAPENTIN 300 MG CAP PO SCH ×3 (06:41→21:34)
[2022-01-08] MEDS: ACCU-CHEK COMFORT CURVE STRIP VI SCH ×4 (06:42→21:35)
[2022-01-08] MEDS: InsuLIN REG 1unit/0.01ml Soln (100units/ml) SC SCH ×5 (06:42→22:05)
[2022-01-08] MEDS: FUROSEMIDE 20 MG/2 ML VIAL IV SCH ×2 (06:42→17:17)
[2022-01-08] MEDS: cefTRIAXone 1GM/50ML D5W 50 ML IV SCH (09:08)
[2022-01-08] MEDS: FERROUS SULFATE 325mg EC TAB PO SCH (09:08)
[2022-01-08 09:09] VITALS: BP 103/62
[2022-01-08] MEDS: CLOPIDOGREL BISULFATE 75 MG TAB PO SCH (09:09)
[2022-01-08] MEDS: ENOXAPARIN SOD 100 MG/1 ML SYRINGE SC SCH ×2 (09:09→21:35)
[2022-01-08] MEDS: CARVEDILOL 3.125 MG TAB PO SCH ×2 (09:09→21:34)
[2022-01-08] MEDS: NICOTINE 14 MG/24HR TOPICAL PATCH TD SCH (09:10)
[2022-01-08] MEDS: LISINOPRIL 5 MG TAB PO SCH (09:10)
[2022-01-08] MEDS: HYDROcodone-ACET 5/325MG TAB PO PRN ×2 (09:10→15:30)
[2022-01-08 12:49] VITALS: BP 136/56
[2022-01-08] MEDS ORDERED: POLYETHYLENE GLYCOL 17 GM PWDR PO ONE (15:15)
[2022-01-08 16:56] VITALS: BP 122/65
[2022-01-08] MEDS: ATORVASTATIN 20 MG TAB PO SCH (21:34)
[2022-01-08 22:00] VITALS: BP 126/70
[2022-01-09] VITALS (11 sets, daily range): BP systolic 127–147; BP diastolic 61–84
[2022-01-09] MEDS: CLINDAMYCIN 300MG IV 50 ML IV SCH ×3 (05:30→23:00)
[2022-01-09] MEDS: GABAPENTIN 300 MG CAP PO SCH ×3 (05:31→23:01)
[2022-01-09] MEDS: ACCU-CHEK COMFORT CURVE STRIP VI SCH ×4 (05:31→23:02)
[2022-01-09] MEDS: FUROSEMIDE 20 MG/2 ML VIAL IV SCH ×2 (05:31→18:00)
[2022-01-09 06:22] LABS: Basophils # (auto) 0 10 ^3/uL (0-0.2); Basophils % (auto) 0.6 % (0.0-2.0); Eosinophils # (auto) 0.1 10 ^3/uL (0-0.8); Eosinophils % (auto) 1.1 % (0.0-7.0); Hematocrit 36.7 % (41.0-53.0); Hemoglobin 11.7 g/dL (13.5-17.5); Lymphocytes # (auto) 1.5 10 ^3/uL (0.4-5.4); Lymphocytes % (auto) 25.8 % (10.0-50.0); Mean Corpuscular Hemoglobin 25.8 pg (28.0-32.0); Mean Corpuscular Volume 80.7 fL (80.0-100.0); Monocytes # (auto) 0.7 10 ^3/uL (0-1.3); Neutrophils # (auto) 3.3 10 ^3/uL (1.6-8.6); Neutrophils % (auto) 59.5 % (37.0-80.0); Nucleated Red Blood Cells % 0.1 %; Red Blood Cells 4.55 10^6/uL (4.5-5.90); Red Cell Distribution Width 16.7 % (11.8-14.3); White Blood Cell 5.6 10^3/uL (4.4-10.8)
[2022-01-09 06:28] LABS: INR 1.12 (0.9-1.15); Partial Thromboplastin Time 28.2 sec (23.6-33.0)
[2022-01-09 06:32] LABS: Anion Gap 11 (5-15); Calcium 9.4 mg/dL (8.5-10.1); Carbon Dioxide 24 mmol/L (21-32); Chloride 103 mmol/L (98-107); Glucose 104 mg/dL (74-106); Potassium 5.2 mmol/L (3.5-5.1); Sodium 138 mmol/L (136-145)
[2022-01-09 06:37] LABS: BUN/Creatinine Ratio 14.1; Blood Urea Nitrogen 14 mg/dL (7-18); GFR African American 93 mL/min; GFR Non-African American 77 mL/min
[2022-01-09] MEDS ORDERED: LIDOCAINE 2%HCL (LOCAL ANESTH.) INJ 10ml MDV ONE (08:02)
[2022-01-09] MEDS ORDERED: IODIXANOL 320MG/ML 100ML BTL IV ONE (08:03)
[2022-01-09] MEDS ORDERED: MEPERIDINE HCL (25 MG/ML) 1ML VIAL ONE (08:58)
[2022-01-09] MEDS ORDERED: fentaNYL CITRATE 5 ML ONE (08:58)
[2022-01-09] MEDS ORDERED: fentaNYL CITRATE 100 MCG/2 ML VL ONE ×2 (08:58→10:37)
[2022-01-09] MEDS ORDERED: MIDAZOLAM HCL 2MG/2ML 2ml VIAL (1mg/ml) ONE (08:58)
[2022-01-09] MEDS: cefTRIAXone 1GM/50ML D5W 50 ML IV SCH (09:00)
[2022-01-09] MEDS ORDERED: DexAMETHasone SOD PHOS 10MG/1ML VIAL INJ ONE (09:51)
[2022-01-09] MEDS ORDERED: ETOMIDATE (2MG/ML) 20ML VIAL IV ONE (09:53)
[2022-01-09] MEDS: FERROUS SULFATE 325mg EC TAB PO SCH (10:00)
[2022-01-09] MEDS: NICOTINE 14 MG/24HR TOPICAL PATCH TD SCH (10:00)
[2022-01-09] MEDS: CLOPIDOGREL BISULFATE 75 MG TAB PO SCH (10:00)
[2022-01-09] MEDS: CARVEDILOL 3.125 MG TAB PO SCH ×2 (10:00→23:01)
[2022-01-09] MEDS: ENOXAPARIN SOD 100 MG/1 ML SYRINGE SC SCH ×2 (10:00→23:02)
[2022-01-09] MEDS ORDERED: ANGIOMAX 250 MG VIAL IV ONE (10:01)
[2022-01-09] MEDS ORDERED: SODIUM CHL 0.9% 0 ML ONE (10:01)
[2022-01-09] MEDS ORDERED: HEPARIN SODIUM (PORCINE) 5000 UNITS/ML 1ML VIAL ONE ×2 (10:04→10:55)
[2022-01-09] MEDS: InsuLIN REG 1unit/0.01ml Soln (100units/ml) SC SCH ×3 (11:30→22:40)
[2022-01-09] MEDS ORDERED: MIDAZOLAM HCL 2MG/2ML 2ml VIAL (1mg/ml) IV PRN (13:15)
[2022-01-09] MEDS ORDERED: ONDANSETRON HCL 4 MG/2 ML VIAL IV PRN (13:15)
[2022-01-09] MEDS ORDERED: HYDROmorphone HCL 2 MG/ML VL/or syr IV PRN (13:15)
[2022-01-09] MEDS ORDERED: LABETALOL HCL 5 MG/ML 4ML SYRINGE IV PRN (13:15)
[2022-01-09] MEDS ORDERED: ePHEDrine SULFATE 50 MG/ML AMP IV PRN (13:15)
[2022-01-09] MEDS ORDERED: MORPHINE SULFATE 4 MG/ML SYR/VIAL IV PRN (13:15)
[2022-01-09] MEDS: HYDROcodone-ACET 5/325MG TAB PO PRN (20:40)
[2022-01-09] MEDS: ATORVASTATIN 20 MG TAB PO SCH (23:01)
[2022-01-09] MEDS: MORPHINE SULFATE INJECTION 2 MG/ML SYRG IV PRN (23:04)
[2022-01-10 05:00] VITALS: BP 118/71
[2022-01-10] MEDS: GABAPENTIN 300 MG CAP PO SCH ×3 (05:38→21:59)
[2022-01-10] MEDS: FUROSEMIDE 20 MG/2 ML VIAL IV SCH ×2 (05:38→19:09)
[2022-01-10] MEDS: CLINDAMYCIN 300MG IV 50 ML IV SCH ×3 (05:38→21:57)
[2022-01-10] MEDS: HYDROcodone-ACET 5/325MG TAB PO PRN ×2 (05:42→21:18)
[2022-01-10 06:07] LABS: Potassium 4.1 mmol/L (3.5-5.1)
[2022-01-10] MEDS: InsuLIN REG 1unit/0.01ml Soln (100units/ml) SC SCH ×4 (06:18→21:59)
[2022-01-10] MEDS: ACCU-CHEK COMFORT CURVE STRIP VI SCH ×4 (06:18→21:59)
[2022-01-10 06:20] LABS: BUN/Creatinine Ratio 14.6; Magnesium 2.5 mg/dL (1.6-2.6)
[2022-01-10 08:20] VITALS: BP 129/61
[2022-01-10] MEDS: cefTRIAXone 1GM/50ML D5W 50 ML IV SCH (08:42)
[2022-01-10] MEDS: MORPHINE SULFATE INJECTION 2 MG/ML SYRG IV PRN ×2 (08:45→23:23)
[2022-01-10] MEDS: CLOPIDOGREL BISULFATE 75 MG TAB PO SCH (09:55)
[2022-01-10] MEDS: FERROUS SULFATE 325mg EC TAB PO SCH (09:55)
[2022-01-10] MEDS: CARVEDILOL 3.125 MG TAB PO SCH ×2 (09:56→21:58)
[2022-01-10] MEDS: ENOXAPARIN SOD 100 MG/1 ML SYRINGE SC SCH ×2 (09:57→21:59)
[2022-01-10] MEDS: NICOTINE 14 MG/24HR TOPICAL PATCH TD SCH (10:00)
[2022-01-10 12:20] VITALS: BP 140/78
[2022-01-10 16:25] VITALS: BP 138/64
[2022-01-10] MEDS: ATORVASTATIN 20 MG TAB PO SCH (21:58)
[2022-01-10 22:00] VITALS: BP 119/66
[2022-01-11 05:00] VITALS: BP 124/64
[2022-01-11 06:09] LABS: Hemoglobin 10.9 g/dL (13.5-17.5); Mean Corpuscular Hgb Conc. 33.3 g/dL (32.0-36.0)
[2022-01-11 06:12] LABS: Hematocrit 32.8 % (41.0-53.0); Mean Corpuscular Hemoglobin 26.2 pg (28.0-32.0); Mean Corpuscular Volume 78.8 fL (80.0-100.0); Red Blood Cells 4.16 10^6/uL (4.5-5.90); White Blood Cell 3.2 10^3/uL (4.4-10.8)
[2022-01-11 06:20] LABS: INR 1.14 (0.9-1.15); Partial Thromboplastin Time 34.9 sec (23.6-33.0)
[2022-01-11 06:28] LABS: Basophils % (manual) 0 (0.0-2.0); Blast Cells 0; Eosinophils % (manual) 0 (0-7); Metamyelocytes % 0; Myelocytes % 0; Promyelocytes % 0; Reactive Lymphocytes 0
[2022-01-11] MEDS: HYDROcodone-ACET 5/325MG TAB PO PRN ×2 (06:33→21:22)
[2022-01-11] MEDS: CARVEDILOL 3.125 MG TAB PO SCH ×2 (06:34→22:39)
[2022-01-11] MEDS: CLINDAMYCIN 300MG IV 50 ML IV SCH ×3 (06:37→22:39)
[2022-01-11] MEDS: GABAPENTIN 300 MG CAP PO SCH ×3 (06:37→22:40)
[2022-01-11] MEDS: InsuLIN REG 1unit/0.01ml Soln (100units/ml) SC SCH ×4 (06:37→22:25)
[2022-01-11] MEDS: FUROSEMIDE 20 MG/2 ML VIAL IV SCH ×2 (06:37→17:43)
[2022-01-11] MEDS: ACCU-CHEK COMFORT CURVE STRIP VI SCH ×4 (06:38→22:40)
[2022-01-11 08:25] VITALS: BP 105/62
[2022-01-11] MEDS: cefTRIAXone 1GM/50ML D5W 50 ML IV SCH (08:42)
[2022-01-11] MEDS: NICOTINE 14 MG/24HR TOPICAL PATCH TD SCH (10:00)
[2022-01-11] MEDS: ENOXAPARIN SOD 100 MG/1 ML SYRINGE SC SCH ×2 (10:07→22:40)
[2022-01-11] MEDS: FERROUS SULFATE 325mg EC TAB PO SCH (10:07)
[2022-01-11] MEDS: CLOPIDOGREL BISULFATE 75 MG TAB PO SCH (10:07)
[2022-01-11 10:32] LABS: Band Neutrophils % (manual) 9; Lymphocytes % (manual) 31 (10.0-50.0); Monocytes % (manual) 8 (0-12)
[2022-01-11 12:20] VITALS: BP 121/74
[2022-01-11 16:20] VITALS: BP 119/68
[2022-01-11] MEDS ORDERED: WARFARIN SODIUM 5 MG TAB PO ONE (17:15)
[2022-01-11 22:08] VITALS: BP 113/65
[2022-01-11] MEDS: ATORVASTATIN 20 MG TAB PO SCH (22:39)
[2022-01-12] MEDS: MORPHINE SULFATE INJECTION 2 MG/ML SYRG IV PRN ×2 (00:34→05:51)
[2022-01-12 05:00] VITALS: BP 114/68
[2022-01-12] MEDS: CLINDAMYCIN 300MG IV 50 ML IV SCH ×2 (06:42→13:29)
[2022-01-12] MEDS: FUROSEMIDE 20 MG/2 ML VIAL IV SCH ×2 (06:43→17:54)
[2022-01-12] MEDS: GABAPENTIN 300 MG CAP PO SCH ×2 (06:44→13:29)
[2022-01-12] MEDS: InsuLIN REG 1unit/0.01ml Soln (100units/ml) SC SCH ×3 (06:45→17:54)
[2022-01-12] MEDS: ACCU-CHEK COMFORT CURVE STRIP VI SCH ×3 (06:46→16:56)
[2022-01-12 08:20] VITALS: BP 115/67
[2022-01-12 09:14] LABS: Eosinophils # (auto) 0 10 ^3/uL (0-0.8); Hemoglobin 11.7 g/dL (13.5-17.5); Monocytes # (auto) 0.7 10 ^3/uL (0-1.3); Neutrophils # (auto) 2.3 10 ^3/uL (1.6-8.6)
[2022-01-12 09:17] LABS: Basophils # (auto) 0 10 ^3/uL (0-0.2); Basophils % (auto) 0.9 % (0.0-2.0); Eosinophils % (auto) 0.5 % (0.0-7.0); Hematocrit 36.2 % (41.0-53.0); Lymphocytes # (auto) 1.5 10 ^3/uL (0.4-5.4); Lymphocytes % (auto) 33.5 % (10.0-50.0); Mean Corpuscular Hemoglobin 25.6 pg (28.0-32.0); Mean Corpuscular Hgb Conc. 32.3 g/dL (32.0-36.0); Mean Corpuscular Volume 79.4 fL (80.0-100.0); Monocytes % (auto) 14.7 % (0.0-12.0); Neutrophils % (auto) 50.4 % (37.0-80.0); Nucleated Red Blood Cells % 0.2 %; Red Blood Cells 4.56 10^6/uL (4.5-5.90); Red Cell Distribution Width 16.8 % (11.8-14.3); White Blood Cell 4.5 10^3/uL (4.4-10.8)
[2022-01-12 09:35] LABS: INR 1.14 (0.9-1.15)
[2022-01-12] MEDS: NICOTINE 14 MG/24HR TOPICAL PATCH TD SCH (10:00)
[2022-01-12] MEDS: cefTRIAXone 1GM/50ML D5W 50 ML IV SCH (10:04)
[2022-01-12] MEDS: ENOXAPARIN SOD 100 MG/1 ML SYRINGE SC SCH (10:04)
[2022-01-12] MEDS: FERROUS SULFATE 325mg EC TAB PO SCH (10:05)
[2022-01-12] MEDS: CLOPIDOGREL BISULFATE 75 MG TAB PO SCH (10:05)
[2022-01-12] MEDS: CARVEDILOL 3.125 MG TAB PO SCH (10:05)
[2022-01-12] MEDS: HYDROcodone-ACET 5/325MG TAB PO PRN (10:13)
[2022-01-12 12:10] VITALS: BP 132/82
[2022-01-12] MEDS ORDERED: RIVA1TAB PO (14:30)
[2022-01-12 16:10] VITALS: BP 139/70
[2022-01-12 18:09] VITALS: BP 139/70
== END 2022-01-12 18:35 | disposition home health service (06) | DRG 271 ==
LOC: EDBD 12:52 → ER 12:52 → EDUNIT# 12:52 → OVERFLOW 18:10 → WEST WING 01-04 00:35 → TELE-WESTW 01-06 03:03
PROVIDERS: ADMIT Registered Nurse; ATTEND Internal Medicine
PROC: 04CN3ZZ Extirpation of Matter from Left Popliteal Artery, Percutaneous Approach (ICD-10-PCS; 2022-01-09)
PROC: 04CL3ZZ Extirpation of Matter from Left Femoral Artery, Percutaneous Approach (ICD-10-PCS; principal; 2022-01-09 09:10)
DX: I82.412 Acute embolism and thrombosis of left femoral vein (principal); L03.116 Cellulitis of left lower limb; E44.0 Moderate protein-calorie malnutrition; R00.0 Tachycardia, unspecified; I87.2 Venous insufficiency (chronic) (peripheral); D63.8 Anemia in other chronic diseases classified elsewhere; N18.2 Chronic kidney disease, stage 2 (mild); I25.10 Atherosclerotic heart disease of native coronary artery without angina pectoris; J44.9 Chronic obstructive pulmonary disease, unspecified; I12.9 Hypertensive chronic kidney disease with stage 1 through stage 4 chronic kidney disease, or unspecified chronic kidney disease; I50.82 Biventricular heart failure; E66.01 Morbid (severe) obesity due to excess calories; Z68.30 Body mass index [BMI] 30.0-30.9, adult; R79.89 Other specified abnormal findings of blood chemistry; E11.22 Type 2 diabetes mellitus with diabetic chronic kidney disease; Z20.822 Contact with and (suspected) exposure to COVID-19; E78.5 Hyperlipidemia, unspecified; F17.210 Nicotine dependence, cigarettes, uncomplicated; Z53.9 Procedure and treatment not carried out, unspecified reason; Z79.01 Long term (current) use of anticoagulants; Z82.49 Family history of ischemic heart disease and other diseases of the circulatory system; Z86.711 Personal history of pulmonary embolism; Z86.718 Personal history of other venous thrombosis and embolism; Z86.73 Personal history of transient ischemic attack (TIA), and cerebral infarction without residual deficits; Z91.14 Patient's other noncompliance with medication regimen; Z95.5 Presence of coronary angioplasty implant and graft; Z79.84 Long term (current) use of oral hypoglycemic drugs
CPT/HCPCS: 34201; 36415; 71045; 71275; 80048; 80053; 80061; 82962; 83735; 83880; 84100; 84132; 84484; 85007; 85025; 85027; 85379; 85610; 85730; 86301; 87081; 93005; 93971; 96365; 96375; 99152; 99153; C1894; C9113; G0378; J0696; J1100; J1815; J2001; J2250; J2405; J3490; Q9967

== ENCOUNTER → 2022-02-17 | Outpatient (CLI) | payer MEDICARE, MEDICAID ==
[~2022-02-17] MED LIST changes: -APIX5TAB PO; -CEPH500C PO; -CLIN300C8 PO; -GABA300C10 PO; +METF-370 PO; -METH500T22 PO; +RIVA1TAB PO
[2022-02-17 12:53] VITALS: BP 110/60
[2022-02-17 13:46] VITALS: BP 120/66
== END | disposition home or self-care (01) ==
LOC: CHF HDHVI 12:57
PROVIDERS: ATTEND Internal Medicine
DX: S81.802A Unspecified open wound, left lower leg, initial encounter (principal); R00.0 Tachycardia, unspecified; I73.9 Peripheral vascular disease, unspecified; Z92.82 Status post administration of tPA (rtPA) in a different facility within the last 24 hours prior to admission to current facility; X58.XXXA Exposure to other specified factors, initial encounter; Y93.89 Activity, other specified; Y92.89 Other specified places as the place of occurrence of the external cause; Y99.8 Other external cause status
CPT/HCPCS: 93005; G0463